=== PATIENT | female | born 1945 | race Caucasian/White ===

== ENCOUNTER → 2016-11-29 | Outpatient (CLI) | payer BC ==
--- NOTE | 2016-11-29 13:51 | KCIC ---
Indication: Left foot pain and injury to the fifth toe 5 weeks ago. Time of exam 1:23 PM There is a fracture involving the proximal aspect of the proximal phalanx, fifth toe. No significant displacement or angulation is seen. There may be minimal callus formation present consistent with some healing. Remaining phalanges are intact. The metatarsals are intact. The midfoot and hindfoot are unremarkable apart from a plantar calcaneal spur. IMPRESSION: Healing proximal phalangeal fracture of the fifth toe. The fracture line does remain clearly visible however. Electronically signed by: Francisco Cardoza MD (11/29/2016 1:49 PM) [id number]
== END | disposition home or self-care (01) ==
LOC: KCIC 13:04
PROVIDERS: ATTEND Physician Assistant Medical
DX: S99.922D Unspecified injury of left foot, subsequent encounter (principal); X58.XXXD Exposure to other specified factors, subsequent encounter
CPT/HCPCS: 73630

== ENCOUNTER → 2017-02-19 | Outpatient (CLI) | payer BC ==
[~2017-02-19] MED LIST: ESCITALOPRAM OXA5 MG PO; GADOBUTROL 7.5 MMOL/7.5 ML VIAL IV ONE; PANT40TA5 PO; SIMV10TA3 PO
--- NOTE | 2017-02-19 10:13 | KCIC ---
MRI of the Brain without and with Contrast 02/19/2017 Clinical History: Chronic headaches. Technique: Unenhanced T1-weighted sagittal and axial and FLAIR, T2-weighted, gradient echo and diffusion-weighted axial images of the brain were obtained. After the intravenous administration of 6 cc of Gadavist, enhanced T1-weighted axial and coronal images of the brain were obtained. Findings: No previous studies are available for comparison. There is generalized parenchymal atrophy. Patchy, confluent and multiple focal areas of abnormally increased signal intensity are seen within the periventricular and subcortical white matter of both cerebral hemispheres along with the william on the FLAIR and T2-weighted images consistent most likely with areas of small vessel ischemic disease. No acute parenchymal abnormality is seen. No abnormal area of contrast enhancement is noted. No extra-axial fluid collection is seen. There is no MRI evidence of acute ischemia/infarction. Mild to moderate mucosal thickening is seen scattered throughout the paranasal sinuses. Small fluid levels are seen involving both maxillary sinuses. Normal flow voids are seen within the major vascular structures surrounding the brain parenchyma. Impression: No acute parenchymal abnormality is seen. Electronically signed by: Dexter Onofre MD (02/19/2017 10:09 AM) [facility]-KCIC1
== END | disposition home or self-care (01) ==
LOC: KCIC MRI 08:20
PROVIDERS: ATTEND Physician Assistant Medical
DX: G43.909 Migraine, unspecified, not intractable, without status migrainosus (principal)
CPT/HCPCS: 70553; 82565; A9585

== ENCOUNTER → 2017-09-03 | Outpatient (CLI) | payer BC | END | disposition home or self-care (01) | LOC: KCIC CT 11:05 | DX: J32.9 Chronic sinusitis, unspecified (principal) | CPT/HCPCS: 70486 ==

== ENCOUNTER → 2018-12-09 | Outpatient (CLI) | payer BC ==
[~2018-12-09] MED LIST changes: -GADOBUTROL 7.5 MMOL/7.5 ML VIAL IV ONE; -PANT40TA5 PO; +PANT40TA77 PO; +SIMV10TA15 PO; -SIMV10TA3 PO
--- NOTE | 2018-12-09 17:15 | KCIC ---
EXAM: Right knee, 3 views. HISTORY: Pain with weightbearing. COMPARISON: None. FINDINGS: 3 views of the right knee are obtained. There is no fracture, dislocation or subluxation. There is mild medial compartment spurring. There is trace joint fluid without a significant joint effusion. IMPRESSION: Mild medial compartment osteoarthritis of the right knee. Electronically signed by: Anila Yates MD (12/09/2018 5:13 PM) [facility]
== END | disposition home or self-care (01) ==
LOC: KCIC 13:17
PROVIDERS: ATTEND Physician Assistant Medical
DX: M17.11 Unilateral primary osteoarthritis, right knee (principal)
CPT/HCPCS: 73562

== ENCOUNTER → 2020-01-16 | Outpatient (CLI) | payer BC ==
[~2020-01-16] MED LIST changes: +REGADENOSON 0.4 MG/5 ML DISP.SYRIN. IV ONE
--- NOTE | 2020-01-16 11:03 | CARD ---
MR#: [id number] Date of Study: 01/16/2020 Ordering Physician: GERMAINE SOOD, Referring Physician: GERMAINE SOOD, Tech: Madeleine Clements APPROVED REPORT EXAM: Two-dimensional and M-mode echocardiogram with Doppler and color Doppler. Other Information Quality : AverageHR: 68bpm INDICATION Dyspnea RISK FACTORS Hyperlipidemia 2D DIMENSIONS RVDd2.8 (2.9-3.5cm)Left Atrium(2D)3.0 (1.6-4.0cm) IVSd0.9 (0.7-1.1cm)Aortic Root(2D)2.7 (2.0-3.7cm) LVDd4.7 (3.9-5.9cm)LVOT Diameter2.1 (1.8-2.4cm) PWd0.8 (0.7-1.1cm)LVDs2.7 (2.5-4.0cm) FS (%) 41.4 %SV72.8 ml LVEF(%)72.3 (>50%) Aortic Valve AoV Peak Heath.121.4cm/sAoV VTI25.1cm AO Peak GR.5.9mmHgLVOT Peak Heath.92.9cm/s LVOT VTI 21.92cmAO Mean GR.3mmHg COLIN (VMAX)2.72vh7IMX (VTI)2.94cm2 Mitral Valve MV E Axokgoxj41.5cm/sMV DECEL LUIV930aq MV A Loilibzg36.9cm/sMV VGZ37no E/A Ratio0.8MVA (PHT)3.18cm2 TDI E/Lateral E'8.4E/Medial E'11.0 Pulmonary Valve PV Peak Cpwrnhvo22.2cm/sPV Peak Grad.2mmHg Tricuspid Valve TR P. Fafudgxv551na/sRAP CNEEXSEJ2kcDm TR Peak Gr.32ngOvCJHH34wiQm Pulmonary Vein S1 Avcfxbvq86.8cm/sD2 Mpovxpzf22.2cm/s PVa ykkopqim002umtp LEFT VENTRICLE The left ventricle is normal size. There is normal left ventricular wall thickness. The left ventricu lar systolic function is normal. The Ejection Fraction is 50-55%. There is normal LV segmental wall m otion. Transmitral Doppler flow pattern is Grade I-abnormal relaxation pattern. RIGHT VENTRICLE The right ventricle is normal size. There is normal right ventricular wall thickness. The right ventr icular systolic function is normal. ATRIA The left atrium size is normal. The right atrium size is normal. The interatrial septum is intact wit h no evidence for an atrial septal defect or patent foramen ovale as noted on 2-D or Doppler imaging. AORTIC VALVE The aortic valve is thickened but opens well. Doppler and Color Flow revealed no significant aortic r egurgitation. There is no significant aortic valvular stenosis. Calculated aortic valve area is 2.96 cm2 with maximum pressure gradient of 7 mmHg and mean pressure gradient of 4 mmHg. MITRAL VALVE The mitral valve is normal in structure and function. There is no evidence of mitral valve prolapse. There is no mitral valve stenosis. Doppler and Color-flow revealed trace mitral regurgitation. TRICUSPID VALVE The tricuspid valve is normal in structure and function. Doppler and Color Flow revealed trace tricus pid regurgitation with an estimated PAP of 27 mmHg. There is no tricuspid valve stenosis. PULMONIC VALVE The pulmonic valve is not well visualized. Doppler and Color Flow revealed no pulmonic valvular regur gitation. GREAT VESSELS The aortic root is normal in size. The IVC is normal in size and collapses >50% with inspiration. PERICARDIAL EFFUSION There is no evidence of significant pericardial effusion. Critical Notification Critical Value: No <Conclusion> The left ventricular systolic function is normal. The Ejection Fraction is 50-55%. There is normal LV segmental wall motion. Transmitral Doppler flow pattern is Grade I-abnormal relaxation pattern. Trace mitral regurgitation. Trace tricuspid regurgitation with an estimated PAP of 27 mmHg. There is no evidence of significant pericardial effusion. Signed by : Germaine Sood, Electronically Approved : 01/16/2020 11:03:12
--- NOTE | 2020-01-16 14:25 | RAD ---
MR#: [id number] Date of Study: 01/16/2020 Ordering Physician: GERMAINE MO Referring Physician: JHONATHAN RUIZ Tech: RT Matthieu TagnR) (N) APPROVED REPORT Test Type: Pharmacological Stress Nurse/Tech: Tasneem TUCKER Test Indications: Dyspnea, Lower extremity swelling, indigestion Cardiac History: See EMR Medications: See EMR Medical History: Breast CA 2006, See EMR Resting ECG: SR Resting Heart Rate: 67 bpm Resting Blood Pressure: 149/76mmHg Pretest Chest Pain: No chest pain Nurse/Tech Notes Lungs CTA, Heart tones regular Consent: The procedure was explained to the patient in lay terms. Informed consent was witnessed. Zack eout was entered into [facility]. History and Stress Test performed by [facility]. Details Pharmacologic stress testing was performed using 0.4mg per 5ml of regadenoson given intravenously ove r 7-10 seconds. Stress Symptoms No chest pain or symptoms. POST EXERCISE Reason for Termination: Infusion complete Max HR: 103 bpm Max Blood Pressure: 140/67mmHg Blood Pressure response to exercise: Normal blood pressure response during stress. Heart Rate response to exercise: WNL Chest Pain: No. Arrhythmia: No. ST Change: No. INTERPRETATION Stress EKG Conclusion: Baseline EKG showed sinus rhythm. No ischemic changes at peak stress. No arr hythmias. Imaging Protocol IMAGE PROTOCOL: Rest Tc-99m/stress Tc-99m 1 day Rest: Stress: Viability: Radiopharm.Tc99m EsorezfcpSt93g Sestamibi Dose10.6mCi 33mCi Duration 13min. 13min. Img Date 01/16/2020 01/16/2020 Inj-Img Afnp42crk. 60min. Rest Admin Site:IV - Left AntecubitalAdministrator:RT Clyde (Kyara)(N) Stress Admin Site: IV - Left AntecubitalAdministrator: NED [facility] STRESS DATA End Diast. Vol.45.0mlLVEDV index BSA26.0ml End Syst. Vol.6.0mlLVESV index BSA3.0ml Myocardial Mass85.0gEject. Vvvgygah63.0% Stress Scores Regional WT0.00Summed WT0.00 Regional WM0.00Summed WM0.00 Study quality was good. Left Ventricular size was Normal at Rest and Stress. Lung uptake was . Left Ventricular ejection fraction is 87%. The rest and stress images show normal perfusion, normal contraction and thickening. LV Perf. Quant 17 Seg. SSS0.00 17 Seg. SRS1.00 17 Seg. SDS0.00 Stress Defect Extent (% LAD)0.00Rest Defect Extent (% LAD)0.00Rev. Defect Extent (% LAD)0.00 Stress Defect Extent (% LCX) 0.00Rest Defect Extent (% LCX)0.00Rev. Defect Extent (% LCX)0.00 Stress Defect Extent (% RCA)0.00Rest Defect Extent (% RCA)0.00Rev. Defect Extent (% RCA)0.00 Stress Defect Extent (% KIANA)0.00Rest Defect Extent (% KIANA)0.00Rev. Defect Extent (% KIANA)0.00 Conclusion 1. Regadenoson cardioisotope stress test did not show any evidence of ischemia or infarct. 2. Normal left ventricular systolic function with ejection fraction calculated at 87%. 3. Low risk for cardiac events. Signed by : Germaine Mo, Electronically Approved : 01/16/2020 14:24:57
--- NOTE | 2020-01-16 16:37 | RAD ---
EXAM: Bilateral lower extremity venous reflux sonogram. HISTORY: Edema. TECHNIQUE: Sonographic imaging of the greater saphenous veins was performed. COMPARISON: None. FINDINGS: The right greater saphenous vein at the saphenofemoral junction measures 6.1 mm in caliber and within the proximal thigh measures 4.2 mm in caliber. The left greater saphenous vein at the saphenofemoral junction measures 5.9 mm in caliber and within the proximal thigh measures 5.1 mm in caliber. There is no evidence of significant greater saphenous vein reflux. The right lesser saphenous vein measures 4.8 mm and 4.1 mm proximally. The left lesser saphenous vein measures 4.6 mm and 4.2 mm proximally. There is no evidence of significant lesser saphenous vein reflux. IMPRESSION: Bilateral greater and lesser saphenous vein caliber measurements. No reflux is seen. Electronically signed by: Anila Yates MD (01/16/2020 4:34 PM) [id number]
== END ==
LOC: NM 10:38
PROVIDERS: ATTEND Internal Medicine Cardiovascular Disease
DX: R60.0 Localized edema (principal); R06.00 Dyspnea, unspecified
CPT/HCPCS: 78452; 93017; 93306; 93970; A9500; J2785

== ENCOUNTER → 2020-04-13 | Outpatient (CLI) | payer BC ==
[~2020-04-13] MED LIST changes: -REGADENOSON 0.4 MG/5 ML DISP.SYRIN. IV ONE
--- NOTE | 2020-04-13 10:09 | KCIC ---
EXAM: DUAL ENERGY X-RAY ABSORPTIOMETRY (DEXA). HISTORY: Postmenopausal screening. FINDINGS: The lowest measured T-score is -0.2 in the lumbar spine, based on a bone mineral density of 1.022 g/cm^2. Refer to the worksheets for full detail. In comparison with the prior study of 10/12/2014, average bone mineral density at the lumbar spine mae s changed is 5.0%, while the average density at the left hip has changed -2.8%. IMPRESSION: Normal. Bone mineral density yields a T-score of -1.0 or greater. Fracture risk is low. FRAX was not calculated. METHODOLOGY: Dual energy x-ray absorptiometry was performed to measure bone mineral density. The foll owing analysis is based on the 2019 Official Positions of the International Society for Clinical Dens itometry: Measurements of the hips and the average of L1-L4 are preferred. When the spine and/or hip cannot be feasibly measured or interpreted, or in the setting of hyperparathyroidism, distal radial bone minera l density may be measured. The lumbar spine T-score is based on the average bone mineral density of L1-L4. In the setting of art ifact or anatomic abnormality, some lumbar levels may be excluded, and the remaining levels used for calculation. A single lumbar level is not used for diagnosis, and if only a single level is available for assessment, another anatomic site will be used to assign a diagnosis. The hip T-score is based on the bone mineral density measurement of the femoral neck or total proxima l femur of either side, whichever is lowest. Bilateral mean values are not used for diagnosis. The forearm T-score is derived from 33% of the distal radius of the nondominant forearm. For postmenopausal and perimenopausal women, and men age 50 or older, of all ethnic groups, T-scores are calculated through comparison of the current measurement with the NHANES III database standard fo r females aged 20-29 years. The lowest T-score of the evaluated anatomic sites is used to a ssign a diagnosis based on the World Health Organization densitometric classification. In premenopausal females and males younger than age 50, a Z-score is calculated based on population s pecific reference data for patient sex and self-reported ethnicity. Electronically signed by: Tammy Moya MD (04/13/2020 10:07 AM) [id number]
== END ==
LOC: KCIC DEXA 08:31
PROVIDERS: ATTEND Family Medicine
DX: Z78.0 Asymptomatic menopausal state (principal)
CPT/HCPCS: 77080

== ENCOUNTER → 2021-01-20 | Outpatient (CLI) | payer BC ==
--- NOTE | 2021-01-20 12:21 | CARD ---
MR#: [id number] Date of Study: 01/20/2021 Ordering Physician: GERMAINE SOOD, Referring Physician: GERMAINE SOOD, Tech: Madeleine Clements [facility] APPROVED REPORT EXAM: Two-dimensional and M-mode echocardiogram with Doppler and color Doppler. Other Information HR: 70bpm INDICATION Dyspnea RISK FACTORS Hypertension 2D DIMENSIONS RVDd2.5 (2.9-3.5cm)Left Atrium(2D)2.8 (1.6-4.0cm) IVSd0.8 (0.7-1.1cm)Aortic Root(2D)2.9 (2.0-3.7cm) LVDd4.5 (3.9-5.9cm)LVOT Diameter1.9 (1.8-2.4cm) PWd0.9 (0.7-1.1cm)LVDs3.4 (2.5-4.0cm) FS (%) 24.8 %SV46.4 ml LVEF(%)49.3 (>50%) Aortic Valve AoV Peak Heath.109.6cm/sAoV VTI22.9cm AO Peak GR.4.8mmHgLVOT Peak Heath.95.5cm/s LVOT VTI 21.13cmAO Mean GR.3mmHg COLIN (VMAX)2.28ss6JNP (VTI)2.75cm2 Mitral Valve MV E Ybfqwoof10.6cm/sMV DECEL APAF762ek MV A Ymuxxolk89.1cm/sMV E Mean Gr.2mmHg MV WMN97idK/A Ratio0.7 MVA (PHT)3.50cm2 TDI E/Lateral E'9.3E/Medial E'12.7 Pulmonary Valve PV Peak Anourczt04.6cm/sPV Peak Grad.2mmHg Tricuspid Valve TR P. Nrtwjmks717ra/sRAP ZMCVWSTR0zeDg TR Peak Gr.59pjYwKLQE70enFl Pulmonary Vein S1 Mkljkicv06.8cm/sD2 Jydnavjq87.4cm/s PVa hjnlkard81rkvu LEFT VENTRICLE The left ventricle is normal size. There is normal left ventricular wall thickness. The left ventricu lar systolic function is normal. The Ejection Fraction is 50-55%. There is normal LV segmental wall m otion. Transmitral Doppler flow pattern is Grade I-abnormal relaxation pattern. RIGHT VENTRICLE The right ventricle is normal size. There is normal right ventricular wall thickness. The right ventr icular systolic function is normal. ATRIA The left atrium size is normal. The right atrium size is normal. The interatrial septum is intact wit h no evidence for an atrial septal defect or patent foramen ovale as noted on 2-D or Doppler imaging. AORTIC VALVE The aortic valve is normal in structure and function. Doppler and Color Flow revealed no significant aortic regurgitation. There is no significant aortic valvular stenosis. Calculated aortic valve area is 2.50 cm2 with maximum pressure gradient of 7 mmHg and mean pressure gradient of 4 mmHg. MITRAL VALVE The mitral valve is normal in structure and function. There is no evidence of mitral valve prolapse. There is no mitral valve stenosis. Doppler and Color-flow revealed trace mitral regurgitation. TRICUSPID VALVE The tricuspid valve is normal in structure and function. Doppler and Color Flow revealed trace tricus pid regurgitation with an estimated PAP of 33 mmHg. There is no tricuspid valve stenosis. PULMONIC VALVE The pulmonic valve is not well visualized. Doppler and Color Flow revealed trace pulmonic valvular re gurgitation. GREAT VESSELS The aortic root is normal in size. The ascending aorta is normal in size. The IVC is normal in size a nd collapses >50% with inspiration. PERICARDIAL EFFUSION There is no evidence of significant pericardial effusion. Critical Notification Critical Value: No <Conclusion> The left ventricular systolic function is normal. The Ejection Fraction is 50-55%. There is normal LV segmental wall motion. Transmitral Doppler flow pattern is Grade I-abnormal relaxation pattern. Trace mitral regurgitation. Trace tricuspid regurgitation with an estimated PAP of 33 mmHg. There is no evidence of significant pericardial effusion. Signed by : Germaine Sood, Electronically Approved : 01/20/2021 12:20:50
== END ==
LOC: ECHO 08:05
PROVIDERS: ATTEND Internal Medicine Cardiovascular Disease
DX: R06.09 Other forms of dyspnea (principal)
CPT/HCPCS: 93306